=== PATIENT | female | born 1990 | race Caucasian/White ===

== ENCOUNTER 2016-08-21 10:39 | Outpatient (CLI) | payer OTHER ==
--- NOTE | 2016-08-21 12:20 | XRAY Report ---
THREE-VIEW RIGHT ANKLE: 08/21/2016 CLINICAL INDICATION: Pain, deformity. FINDINGS: AP, lateral, oblique views of the right ankle demonstrate no evidence of fracture or dislo cation. The joint spaces are preserved. No effusion is present. No radiopaque foreign body is seen in the soft tissues. IMPRESSION: NORMAL RIGHT ANKLE. JOB #: [id number] EXT JOB #:[id number]
== END 2016-08-21 10:40 | disposition home or self-care (01) ==
LOC: DI 10:39
PROVIDERS: ATTEND Specialist
DX: M25.571 Pain in right ankle and joints of right foot (principal)

== ENCOUNTER 2022-04-01 02:30 | Emergency (ER) | payer OTHER ==
--- NOTE | 2022-04-01 03:14 | ED Physician Documentation ---
History of Present Illness - Stated complaint Stated Complaint: CHEST PX, COLD - Chief complaint Chief Complaint: Cardiac - History obtained from History obtained from: Patient - Additonal information Additional information: 32-year-old woman presents withNonproductive cough, sneezing, and low back pain intermittent over the past couple of weeks with chest pain this evening around 8 PM unresolved with Tylenol. Patient states she went to bed around 11 with the chest pain continuing and then woke up around 130 with persistent pain.Denies hemoptysis, shortness of breath, nausea, pleurisy. 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 Review of Systems Constitutional: denies: Fever Cardiac: reports: Chest pain / pressure, Palpitations Respiratory: reports: Cough. denies: Dyspnea PD PAST MEDICAL HISTORY - Past Medical History Past Medical History: Yes : Chronic bladder infection, Other Other Past Medical History: pyelonephritis - Past Surgical History Past Surgical History: Yes HEENT: Myringotomy (tubes) - Present Medications Home Medications: Ambulatory Orders Medication Instructions Recorded Confirmed Benzonatate [Tessalon] 200 mg PO TID PRN #20 capsule 04/26/15 Guaifenesin/Dextromethorphan 5 ml PO ONCE 04/26/15 04/26/15 [Cough & Chest Congest Dm Liq] - Allergies Allergies/Adverse Reactions: Allergies Allergy/AdvReac Type Severity Reaction Status Date / Time No Known Drug Allergies Allergy Verified 04/01/22 02:51 - Social History Does the pt smoke?: Yes Smoking Status: Current every day smoker Does the pt drink ETOH?: Yes Does the pt have substance abuse?: No - Immunizations Immunizations are current?: Yes - POLST Patient has POLST: No PD ED PE NORMAL - Vitals Vital signs reviewed: Yes - General General: Alert and oriented X 3, No acute distress, Well developed/nourished - HEENT HEENT: Atraumatic, PERRL, EOMI - Neck Neck: Supple, no meningeal sign - Cardiac Cardiac: RRR - Respiratory Respiratory: No respiratory distress, Clear bilaterally - Derm Derm: Normal color, Warm and dry - Psych Psych: Other (tearful affect. depressed mood) Results - Vitals Vitals: Vital Signs - 24 hr 04/01/22 04/01/22 04/01/22 02:35 02:51 03:20 Temperature 36.0 C L Heart Rate 95 103 H Respiratory 16 16 Rate Blood Pressure 138/80 H 128/97 H Blood Pressure 125/78 [Left] O2 Saturation 98 95 Oxygen O2 Source Room air - EKG (time done) 0236 Rate: Rate (enter#) (88) Rhythm: NSR [place]: Normal Intervals: Normal CO QRS: Normal Ischemia: Normal ST segments PD Medical Decision Making - ED course ED course: 32-year-old woman presented with atypical chest pain symptoms. EKG was performed and normal. CXR independently reviewed by myself and outside radiologist was normal. Symptomatic care discussed. Return precautions given. Plan to follow- up with a primary care provider. Departure - Departure Disposition: 01 Home, Self Care Clinical Impression: Depressed mood, Anxiety, Atypical chest pain Condition: Good Instructions: ED Depression Follow-Up: Margie Chi ARNP [Provider Admit Priv/Credential] - Comments: You were seen in the emergency department for evaluation. We uncovered no emergent cause for your symptoms on chest x-ray or EKG. Please follow-up with a primary care provider (referral enclosed). Return to the emergency department for any new or worsening symptoms or other concerns. Forms: Activity restrictions
[2022-04-01 03:23] VITALS: BP 128/97
[2022-04-01 03:49] LABS: CORONAVIRUS 229E-RESP PCR NOT DETECTED; CORONAVIRUS HKU1-RESP PCR NOT DETECTED; CORONAVIRUS NL63-RESP PCR NOT DETECTED; CORONAVIRUS OC43-RESP PCR NOT DETECTED; HUMAN METAPNEUMOVIRUS NOT DETECTED; INFLUENZA A- RESP PCR PANEL NOT DETECTED; RHINOVIRUS/ENTEROVIRUS NOT DETECTED; SARS-CoV-2 -RESP PCR PANEL DETECTED
[2022-04-01 03:50] LABS: B. PARAPERTUSSIS- RESP PCR PAN NOT DETECTED; B. PERTUSSIS- RESP PCR PANEL NOT DETECTED; C. PNEUMONIAE- RESP PCR PANEL NOT DETECTED; INFLUENZA B - RESP PCR PANEL NOT DETECTED; M. PNEUMONIAE- RESP PCR PANEL NOT DETECTED; PARAINFLUENZA VIRUS 1 NOT DETECTED; PARAINFLUENZA VIRUS 2 NOT DETECTED; PARAINFLUENZA VIRUS 3 NOT DETECTED; PARAINFLUENZA VIRUS 4 NOT DETECTED; RSV- RESP PCR PANEL NOT DETECTED
--- NOTE | 2022-04-01 08:14 | XRAY Report ---
PROCEDURE: Chest 2 View X-Ray INDICATIONS: cough X 2 wks TECHNIQUE: 2 views of the chest were acquired. COMPARISON: 02/24/2014 FINDINGS: Surgical changes and devices: None. Lungs and pleura: No pleural effusions or pneumothorax. Lungs are clear. Mediastinum: Mediastinal contours are normal. Heart size is normal. Bones and chest wall: No suspicious bony abnormalities. Soft tissues appear unremarkable. IMPRESSION: 1. No acute cardiopulmonary disease. 2. Final interpretation concordant with preliminary report. Reviewed by: Leeanne Henry MD on 04/01/2022 8:13 AM PST Approved by: Leeanne Henry MD on 04/01/2022 8:13 AM PST Station ID: [id number]
== END 2022-04-01 03:42 | disposition home or self-care (01) ==
LOC: ED 02:30
DX: F17.200 Nicotine dependence, unspecified, uncomplicated (principal); R07.89 Other chest pain; F32.89 Other specified depressive episodes; F41.9 Anxiety disorder, unspecified; U07.1 COVID-19
CPT/HCPCS: 87633; 93005; 99283; 99284